=== PATIENT | male | born 1945 | race Caucasian/White ===

== ENCOUNTER 2020-01-21 20:52 | Emergency (ER) | payer OTHER ==
[~2020-01-21] VITALS: Ht 190.5 cm; Wt 100.0 kg
[2020-01-21] MEDS ORDERED: MORPHINE SULFATE 4 MG/ML CPJ (NOT FOR IM USE) IV ONE (22:45)
[2020-01-21] MEDS ORDERED: KETOROLAC 60MG/2ML VIAL IM ONE (22:45)
[2020-01-21] MEDS ORDERED: METHOCARBAMOL 750MG TABLET PO SCH (22:45)
[2020-01-22 01:46] VITALS: BP 116/79
== END 2020-01-22 02:14 | disposition home or self-care (01) ==
LOC: ER 20:52
DX: S39.012A Strain of muscle, fascia and tendon of lower back, initial encounter (principal); S40.811A Abrasion of right upper arm, initial encounter; W11.XXXA Fall on and from ladder, initial encounter; Y93.89 Activity, other specified; Y92.89 Other specified places as the place of occurrence of the external cause; Y99.8 Other external cause status; E11.9 Type 2 diabetes mellitus without complications; I10 Essential (primary) hypertension; Z98.890 Other specified postprocedural states
CPT/HCPCS: 96372; 96374; 99284; J1885; J2270